=== PATIENT | male | born 1990 | race Two or more races ===

== ENCOUNTER 2020-03-29 01:16 | Emergency (ER) | payer MEDICAID ==
[~2020-03-29] VITALS: Ht 172.7 cm; Wt 79.4 kg
--- NOTE | 2020-03-29 01:23 | Emergency Room Report ---
History of Present Illness General Chief Complaint: Substance Abuse Source: Patient Present Illness HPI 29-year-old male here after using amphetamines. Patient says that he used crystal meth earlier tonight that began to have palpitations soon after that. Denies any homicidal or suicidal ideation or hallucinations. Says he uses meth frequently. He wanted to come to the emergency department "to get my heart checked out." Denies history of any cardiac disease in himself or his family. No fevers, chills, chest pain, back pain, abdominal pain, cough, shortness of breath, nausea, vomiting, diarrhea, dysuria. Allergies: Coded Allergies: No Known Allergies (Unverified , 03/29/20) COVID-19 Screening Contact w/high risk pt: No Experienced COVID-19 symptoms?: No COVID-19 Testing performed STUDIO COORDINATOR: No Review of Systems All Other Systems: negative except mentioned in HPI Physical Exam Vital Signs Date Time Temp Pulse Resp B/P (MAP) Pulse Ox O2 Delivery O2 Flow Rate FiO2 03/29/20 01:18 98.8 122 18 133/82 (99) 97 Room Air Sp02 EP Interpretation: reviewed, normal General Appearance: no apparent distress, alert, non-toxic Head: normocephalic, atraumatic Eyes: bilateral eye normal inspection, bilateral eye PERRL ENT: hearing grossly normal, normal pharynx, no angioedema, normal voice Neck: full range of motion, supple/symm/no masses Respiratory: chest non-tender, lungs clear, normal breath sounds, speaking full sentences Cardiovascular #1: no edema, other - Tachycardic 120 bpm. Regular rhythm Cardiovascular #2: 2+ carotid (R), 2+ carotid (L), 2+ radial (R), 2+ radial (L), 2+ dorsalis pedis (R), 2+ dorsalis pedis (L) Gastrointestinal: normal bowel sounds, non tender, soft, non-distended, no guarding, no rebound Rectal: deferred Genitourinary: normal inspection, no CVA tenderness Musculoskeletal: back normal, normal range of motion, gait/station normal, non- tender Neurologic: alert, motor strength/tone normal, oriented x3, sensory intact, responsive, speech normal Psychiatric: judgement/insight normal, memory normal, mood/affect normal, no suicidal/homicidal ideation, other - Appears anxious and slightly agitated but is cooperative with examination Lymphatic: no adenopathy Medical Decision Making Diagnostic Impression: Primary Impression: Substance abuse Additional Impression: Amphetamine abuse ER Course EKG: NSR, no ischemia, intervals WNL. No ectopy. Rate 114 bpm Rhythm strip: patient monitored for arrhythmias - no malignant dysrhythmias, runs of PVCs, nor pauses noted 29-year-old male here after using crystal meth. Patient was in no acute distress in the emergency department. He was anxious appearing and was given Ativan with good resolution of his anxiety. EKG was completely unremarkable aside from mild sinus tachycardia with a rate of 114 bpm. He had otherwise normal vital signs and otherwise normal physical examination in the emergency room. He was given resources to stop using illicit substances. Told to back to the emergency room with any worsening symptoms. He was clinically sober. Denied homicidal or suicidal ideation or hallucinations. Discharged in stable condition. Last Vital Signs Date Time Temp Pulse Resp B/P (MAP) Pulse Ox O2 Delivery O2 Flow Rate FiO2 03/29/20 01:18 98.8 122 18 133/82 (99) 97 Room Air Referrals: [facility] + [facility] Psych ER - Peds ER - [facility] Intake Hotline - [facility] Patient Instructions: Stimulant Use Disorder-Yannick Bruner M.D. Mar 29, 2020 01:23
--- NOTE | 2020-03-29 01:25 | NUR ---
ED Nurse Note: Patient brought into the ED RA 63 from home due to meth use around 2200. Patient stated he was having palpitations after drug use and wanted his "heart checked". Patient denies chest pain, SOB/, N/V/D, fever/chills. Patient is AAOX4 and ambulatory. VSS as documented. Pt seen by CLEMENTINA. Normal EKG noted
[2020-03-29] MEDS ORDERED: LORazepam 1mg tab ORAL ONE (01:30)
[2020-03-29 01:42] VITALS: BP 133/82
[2020-03-29 01:47] VITALS: BP 133/82
--- NOTE | 2020-03-29 01:47 | NUR ---
ER DISCHARGE NOTE: Patient is cleared to be discharged per ERMD, pt is aox4, on room air, with stable vital signs. pt was given dc and prescription instructions, pt was able to verbalize understanding, pt id band removed. pt is able to ambulate with steady gait. pt took all belongings.
== END 2020-03-29 01:48 | disposition home or self-care (01) ==
LOC: EDBD 01:16 → EMR 01:24
DX: F15.10 Other stimulant abuse, uncomplicated (principal)
CPT/HCPCS: 93005; Z7502; 99283